=== PATIENT | male | born 1985 | race Caucasian/White ===

== ENCOUNTER 2018-10-05 01:21 | Emergency (ER) | payer OTHER ==
[~2018-10-05] VITALS: Ht 180.3 cm; Wt 72.6 kg
[~2018-10-05 01:21] MED LIST: DESYREL50 MG; NORCO 5-325 TA1 EACH PO; PENICILLIN V P500 MG PO; REMERON15 MG; XANAX PO
[2018-10-05 01:47] LABS: ABSOLUTE BASOPHILS 0.1 thou/uL (0.0-0.2); ABSOLUTE EOSINOPHILS 0.3 thou/uL (0.0-0.7); ABSOLUTE MONOCYTES 0.6 thou/uL (0.0-1.2); ABSOLUTE NEUTROPHILS 4.4 thou/uL (1.6-8.1); BASOPHILS 1.1 %; EOSINOPHILS 3.4 %; HEMATOCRIT 41.5 % (42.0-52.0); MCH 29.3 pg (26.0-34.0); MCHC 33.8 g/dL (28.0-37.0); MCV 86.5 fL (80.0-100.0); MONOCYTES 7.6 %; MPV 10.4 fl. (7.2-11.1); NUCLEATED RBCS 0 /100WBC; PLATELET COUNT* 253 thou/uL (150-400); POLYS 51.9 %; RBC 4.79 mil/uL (4.50-6.00); RDW-CV 13.8 % (10.5-14.5); WBC 8.5 thou/uL (4.0-11.0)
[2018-10-05 02:03] LABS: PROTIME 10.2 Seconds (9.20-11.50)
[2018-10-05 02:13] LABS: ALBUMIN 3.6 g/dL (3.4-5.0); ALKALINE PHOSPHATASE 52 U/L (46-116); ANION GAP 6 mmol/L (7-16); BUN 15 mg/dL (7-18); CALCIUM 8.8 mg/dL (8.5-10.1); CHLORIDE 105 mmol/L (98-107); CO2 29 mmol/L (21-32); CREATININE 1.1 mg/dL (0.6-1.3); GLUCOSE 99 mg/dL (70-99); LIPASE 128 U/L (73-393); NT-PRO BRAIN NAT PEPTIDE 15 pg/mL (<300); POTASSIUM 3.5 mmol/L (3.5-5.1); SGOT 23 U/L (15-37); SGPT 23 U/L (30-65); SODIUM 140 mmol/L (136-145); TOTAL BILIRUBIN 0.2 mg/dL (<0.1-1.0); TOTAL PROTEIN 6.7 g/dL (6.4-8.2); TROPONIN-I LEVEL <0.06 ng/mL (<0.06)
[2018-10-05] MEDS ORDERED: IBUPROFEN 800800 MG PO (02:25)
[2018-10-05 02:38] VITALS: BP 106/65
[2018-10-05 02:44] LABS: AMP/METHAMP POSITIVE (Negative); BARBITURATES Negative (Negative); BENZODIAZEPINES Negative (Negative); COCAINE Negative (Negative); METHADONE Negative (Negative); OPIATES Negative (Negative); PCP Negative (Negative); THC POSITIVE (Negative)
--- NOTE | 2018-10-05 09:42 | EKG ---
[place] [address] ELECTROCARDIOGRAM REPORT Name: REDDYJAYCE PRICE Room: [facility]#: [id number] Admission: 10/05/18 Attend Phys: Discharge: 10/05/18 Date of : 85 Report #: [id number] THIS REPORT FOR: //name// [facility] Test Date: 2018-10-05 Test Time: 01:24:53 Pat Name: JAYCE DOAN Department: Room: Gender: M Senior Marketing Manager: Dmitriy Crisostomo : 1985 Requested By: Lex Morris Order Number: [id number] MD: Chivo Hernandez Measurements Intervals [place] Rate: 102 P: 68 AL: 147 QRS: -25 QRSD: 87 T: 58 QT: 324 QTc: 423 Interpretive Statements Sinus tachycardia Borderline left axis deviation RSR' in V1 or V2, probably normal variant Compared to ECG 12/28/2010 17:27:45 no change Electronically Signed On 10-05-2018 9:41:58 CDT by Chivo Hernandez [email or web address] <ELECTRONICALLY SIGNED> By: Chivo Hernandez MD, [facility] 10/05/18 [id number] [id number] Chivo Hernandez MD, [facility] /EPI
== END 2018-10-05 02:58 | disposition home or self-care (01) ==
LOC: M.ERS 01:21
PROVIDERS: Emergency Medicine
DX: M94.0 Chondrocostal junction syndrome [Tietze] (principal); F41.9 Anxiety disorder, unspecified; F17.210 Nicotine dependence, cigarettes, uncomplicated; Z79.899 Other long term (current) drug therapy